=== PATIENT | female | born 1995 | race Hispanic/Latino ===

== ENCOUNTER 2024-03-12 12:50 | Emergency (ER) | payer OTHER, SELFPAY ==
[2024-03-12 13:05] VITALS: BP 127/76
--- NOTE | 2024-03-12 13:15 | ED.GENMED ---
History of Present Illness
<Melanie Turner PA-C - Last Filed: 03/12/24 19:36>
General
Chief Complaint: Abdominal Pain
Source: patient
Exam Limitations: none
Time Seen by Provider: 03/12/24 13:10
Nursing documentation reviewed up to this point in time: agreed with
History of Present Illness
History of Present Illness:
29 y/o female with past medical history of migraine disorder presents Emergency Department today with abdominal pain and vomiting for the past 4 days. Patient reports that this for started with episode of vomiting and she subsequently started to
have pain. She feels that diffusely upon her upper abdomen but worse on the left. Patient also had 3 episodes of diarrhea across the past few days. Patient denies any lightheadedness, dizziness, recent antibiotic use, recent travel sites
consistent tree, any fevers or chills. Of note, patient recently started semaglutide 3 months ago. She has not had any problems or side effects with the medication. She has tried Donna-Artesia, ibuprofen, Pepto-Bismol without relief. She denies
any blood in her stools, any blood in her vomitus. Denies chance of . Denies any abnormal vaginal discharge. Denies dysuria, hematuria, flank pain.
Review of Systems
<Melanie Turner PA-C - Last Filed: 03/12/24 19:36>
Review of Systems
All Other Systems: ROS reviewed and negative except as documented in HPI and ROS
Phy Exam
<Melanie Turner PA-C - Last Filed: 03/12/24 19:36>
Physical Exam
Physical Exam:
General: Patient is well appearing and in no acute distress; non-toxic
Skin: Warm and dry, no rashes or lesions
Head: Normocephalic, atraumatic
Eyes: Sclera non-icteric. EOMs intact. PERRLA.
Cardiac: Regular rate and rhythm, no murmur
Peripheral Vascular: No lower extremity swelling or edema
Pulm: Normal respiratory effort
Abdomen: Left upper quadrant abdominal tenderness to palpation with no guarding, no rebound tenderness, normal active bowel sound
Neuro: CN II-XII intact, no focal neurologic deficits.
Psychiatric: Appropriate mood and affect.
Course
<Melanie Turner PA-C - Last Filed: 03/12/24 19:36>
Orders/Labs/Results
Orders:
Orders
03/12/24 13:28
0.9% Sodium Chloride 1000 ml [Nss] 1,000 ml IV BOLUS
03/12/24 13:33
Ketorolac [Toradol] 15 mg IV NOW STA
Ondansetron Injectable [Zofran] 4 mg IV NOW STA
03/12/24 13:35
CT Abd/pelvis W Iv Cont Urgent
Comment:
Reason For Exam: LUQ ab pain
03/12/24 13:48
Test Result ONCE
03/12/24 14:20
Complete Blood Count/With Diff Urgent
Comprehensive Metabolic Panel Urgent
HCG, Serum Qualitative Screen Urgent
Lipase Urgent
Abnormal Lab Results
03/12/24
14:20
MPV 11.1 H fL
(7.4-10.4)
Absolute Neuts (auto) 8.5 H 10^3/uL
(1.4-6.5)
Absolute Lymphs (auto) 1.0 L 10^3/uL
(1.2-3.4)
Neutrophils % 81.6 H %
(42.2-75.2)
Lymphocytes % 10.0 L %
(20.5-51.1)
03/12/24 14:20
03/12/24 14:20
Vital Signs
Initial and Last Documented VS:
Initial Vital Signs
Temp Pulse Resp BP Pulse Ox
98.6 F 108 20 127/76 96
03/12/24 13:05 03/12/24 13:05 03/12/24 13:05 03/12/24 13:05 03/12/24 13:05
Last Documented Vital Signs
Temp Pulse Resp BP Pulse Ox
98.2 F 98 16 111/66 98
03/12/24 16:55 03/12/24 16:55 03/12/24 16:55 03/12/24 16:55 03/12/24 16:55
<Yu Ibanez, DO - Last Filed: 03/12/24 15:59>
Orders/Labs/Results
Orders:
Orders
03/12/24 13:28
0.9% Sodium Chloride 1000 ml [Nss] 1,000 ml IV BOLUS
03/12/24 13:33
Ketorolac [Toradol] 15 mg IV NOW STA
Ondansetron Injectable [Zofran] 4 mg IV NOW STA
03/12/24 13:35
CT Abd/pelvis W Iv Cont Urgent
Comment:
Reason For Exam: LUQ ab pain
03/12/24 13:48
Test Result ONCE
03/12/24 14:20
Complete Blood Count/With Diff Urgent
Comprehensive Metabolic Panel Urgent
HCG, Serum Qualitative Screen Urgent
Lipase Urgent
Abnormal Lab Results
03/12/24
14:20
MPV 11.1 H fL
(7.4-10.4)
Absolute Neuts (auto) 8.5 H 10^3/uL
(1.4-6.5)
Absolute Lymphs (auto) 1.0 L 10^3/uL
(1.2-3.4)
Neutrophils % 81.6 H %
(42.2-75.2)
Lymphocytes % 10.0 L %
(20.5-51.1)
03/12/24 14:20
03/12/24 14:20
Vital Signs
Initial and Last Documented VS:
Initial Vital Signs
Temp Pulse Resp BP Pulse Ox
98.6 F 108 20 127/76 96
03/12/24 13:05 03/12/24 13:05 03/12/24 13:05 03/12/24 13:05 03/12/24 13:05
Last Documented Vital Signs
Temp Pulse Resp BP Pulse Ox
98.2 F 98 16 111/66 98
03/12/24 16:55 03/12/24 16:55 03/12/24 16:55 03/12/24 16:55 03/12/24 16:55
<Melanie Turner PA-C - Last Filed: 03/12/24 19:36>
MDM/Problems Addressed
Differential Diagnosis Includes:
Differentials include gastritis, pancreatitis, semaglutide reaction, colitis, small bowel obstruction, gastroenteritis
MDM/Problems Addressed:
29-year-old female past medical history of appendectomy, migraine disorder presents emergency department today with concerns of abdominal pain, vomiting, the past few days. She tried Donna-Artesia, Tylenol, Pepto-Bismol without relief. On exam, she
is well-appearing, her vitals are stable, she is afebrile. She was treated with Toradol and Zofran as well as given IV fluids. This resolved her pain. She did have tenderness on exam. She had a CAT scan which did not show any evidence of
abnormalities. Suspect possible gastroenteritis versus side effects of her semaglutide. Advised follow-up with her primary care provider. Zofran sent to her pharmacy should she have persistent symptoms. Discussed return precautions. Patient
stable for discharge.
Chronic conditions affecting care:
n/a
Acute Exacerbation and/or Progression of Chronic Illness:
n/a
<Melanie Turner PA-C - Last Filed: 03/12/24 19:36>
*Pulse Oximetry
Patient hypoxic: no
*Critical Care Note
Total Time (30-74mins, 75-104mins- exclusive of procedures): Not Applicable
Data Reviewed
Review of Other/Old Records Reveals: Records
<Melanie Turner PA-C - Last Filed: 03/12/24 19:36>
Update Note
Update Note:
3:25 pm-- Patient notes her pain significantly improved with Toradol and Zofran and states that she is not requiring further medication at this time
ED Attending Note
<Melanie Turner PA-C - Last Filed: 03/12/24 19:36>
-
Portions of this chart may have been created with voice recognition software.� Occasional wrong word or��sound alike� substitutions may have occurred due to the inherent limitations of voice recognition software.
<Yu Ibanez DO - Last Filed: 03/12/24 15:59>
ED Attending Note
Patient seen and examined by attending physician: Yes
I performed the substantive portion of visit, reviewed & personally made and approve the management plan that is documented in note by myself or JULIETA.: Yes
I performed a history and physical exam of patient and discussed management with resident, I reviewed resident's note and agree with documented findings and plan of care.: Yes
ED Attending Note:
29-year-old female without significant past medical history presenting for 4 days of left sided abdominal pain. Patient reports associated nausea, vomiting, diarrhea. She tried OTC medications, Pepto-Bismol and Donna-Artesia, denies significant
relief. Reports history of appendectomy, otherwise no abdominal surgeries. Denies chest pain or difficulty breathing. Denies any association with food. Denies fever. Does note that she has been taking semaglutide medication for 2 months.
Vital signs are normal. On exam patient is well-appearing, nontoxic. Overall benign abdominal exam with tenderness to the left upper and lower quadrant of the abdomen. No rebound or guarding. Differential considerations include pancreatitis
given semaglutide usage, GERD versus gastritis, diverticulitis, enteritis. Plan for laboratory analysis and CT imaging for further evaluation. Will administer IV fluids and Zofran/Toradol, reassess for improvement
16:00 -patient's labs are unremarkable and CT is negative. Patient reports symptom improvement. Suspected uncomplicated gastroenteritis. Plan for discharge with continued outpatient supportive therapy
Discharge Plan
Departure
Patient Disposition: Home (Routine Discharge)
Date of Disposition: 03/12/24
Time of Disposition: 16:07
Patient with high blood pressure during this ER visit?: Yes
Condition: Good
Discharge Problem:
Gastroenteritis
Instructions: Nausea and Vomiting, Adult (DC), Abdominal Pain, BLOOD PRESSURE
Prescriptions:
New
ondansetron 4 mg tablet,disintegrating
4 mg PO Q8H Qty: 10 0RF
Referrals:
Brittney Saul MD [Active] - Call in 1-3 days for appt
UNKNOWN - PT DOES,NOT KNOW [Family Provider] -
Stand Alone Forms: Return to Work
Activity Restrictions/Additional Instructions:
Zofran has been sent to your pharmacy. You can dissolve one tablet under the tongue every 8 hours as needed.
Should your symptoms fail to improve, please follow-up with your primary care provider or schedule an appointment to see a car blocker at the attached referral number.
Please return to the emergency department should you experience any acute worsening of your symptoms, intractable nausea or vomiting, chest pain, shortness of breath, blood in your stools, blood in your vomit, lightheadedness, dizziness, or any
other signs or symptoms concerning to you.
Interventions
Interventions:
*Risk Screen - Suicide Last Done: 03/12/24 13:07
*General Assessment Last Done: 03/12/24 13:07
*Neglect/Abuse Screening Last Done: 03/12/24 14:20
ED- Fall Risk Assessment Last Done: 03/12/24 14:17
*ED COVID-19 Vaccine History Last Done: 03/12/24 14:17
*Nursing Disposition Last Done: 03/12/24 16:55
CI-Ztogsv-Pwwtwwoher Assessment Last Done: 03/12/24 14:01
Discharge Date and Time
Discharge Date/Time: 03/12/24 16:55
Print Language: NEPALI
[2024-03-12 14:03] VITALS: BP 125/86
[2024-03-12 14:16] VITALS: BMI 42.9
[2024-03-12] MEDS: NSS 1000 IV (14:16)
[2024-03-12] MEDS: TORADOL 15 MG IV (14:17)
[2024-03-12] MEDS: ZOFRAN 4 MG IV (14:17)
[2024-03-12 14:29] LABS: % Basophils 0.1 % (0-2); % Eosinophils 2.9 % (0-6); % Immature Granulocytes 0.4 % (0-0.5); % Neutrophils 81.6 % (42.2-75.2); Absolute Eosinophils 0.3 10^3/uL (0-0.7); Absolute Monocytes 0.5 10^3/uL (0.1-0.6); Absolute Neutrophils 8.5 10^3/uL (1.4-6.5); Hematocrit 43.1 % (37.0-47.0); Hemoglobin 15.2 g/dL (12.0-16.0); Mean Corp Hgb Conc. 35.3 g/dL (33.0-37.0); Mean Platelet Volume 11.1 fL (7.4-10.4); Nucleated Red Blood Cells % 0 %; Platelet Count 296 10^3/uL (130-400); Red Blood Cell Count 5.07 10^6/uL (4.20-5.40); Red Cell Dist. Width 12.4 % (11.5-14.5); White Blood Cell Count 10.4 10^3/uL (4.8-10.8)
[2024-03-12 14:45] LABS: ALT (SGPT) 21 U/L (0-35); AST (SGOT) 23 U/L (14-36); Albumin 4.3 g/dl (3.5-5.0); Alkaline Phosphatase 99 U/L (38-126); Blood Urea Nitrogen 14 mg/dl (7-17); Calcium 9.5 mg/dl (8.4-10.2); Carbon Dioxide 24 mmol/L (22-30); Chloride 103 mmol/L (98-107); Estimated Creatinine Clearance > 125 ml/min; Glucose 95 mg/dl (70-99); HCG, Serum Qualitative Screen Negative; Lipase 73 U/L (23-300); Potassium 3.7 mmol/L (3.5-5.1); Sodium 140 mmol/L (135-145); Total Bilirubin 1.3 mg/dl (0.2-1.3); Total Protein 7.3 g/dl (6.3-8.2); eGFR > 60.00
--- NOTE | 2024-03-12 15:00 | PTCARENOTE ---
Late entry: This nurse completed IVF infusion of NS @ 1500 on 03/12/2024
[2024-03-12 15:30] VITALS: BP 113/59
[2024-03-12 16:00] VITALS: BP 114/65
[2024-03-12 16:55] VITALS: BP 111/66
--- NOTE | 2024-03-12 16:55 | EDRN ---
Reviewed discharge instructions with patient. Verbalized understanding. Ambulated with steady gait to the lobby.
== END 2024-03-12 16:55 | disposition home or self-care (01) ==
LOC: EMR 12:50
PROVIDERS: Physician Assistant; EMERGENCY PHYSICIAN Student in an Organized Health Care Education/Training Program
DX: K52.9 Noninfective gastroenteritis and colitis, unspecified (principal); R03.0 Elevated blood-pressure reading, without diagnosis of hypertension; G43.909 Migraine, unspecified, not intractable, without status migrainosus
CPT/HCPCS: 99284; 96375; 96361; 96374; 74177; 80053; 83690; 84703; 85025; Q9967